=== PATIENT | female | born 1970 | race African-American/Black ===

== ENCOUNTER 2016-12-18 07:21 | Emergency (ER) | payer OTHER ==
[~2016-12-18] VITALS: Ht 160 cm; Wt 80.0 kg
[~2016-12-18 07:21] MED LIST: FLEXERIL10 MG PO; NAPROSYN500 MG PO; NORCO 7.5/321 TABLET PO; TYLENOL WITH C1 EACH PO
[2016-12-18 07:57] LABS: ADD MIUA? YES; BILIRUBIN NEGATIVE; BLOOD NEGATIVE; COLOR YELLOW ((YELLOW)); GLUCOSE (STRIP) NEGATIVE; KETONES NEGATIVE; LEUKOCYTES NEGATIVE; NITRITE NEGATIVE; PROTEIN (STRIP) NEGATIVE; SPECIFIC GRAVITY 1.026 (1.000-1.030); UROBILINOGEN 0.2 MG/DL (0.2-1.0)
[2016-12-18 08:11] LABS: BACTERIA NONE SEEN; CASTS NONE SEEN /LPF; CRYSTALS NONE SEEN; EPITHELIAL CELLS 2+; MUCUS NONE SEEN; PATHOLOGICAL CAST NONE SEEN; RED BLOOD CELLS 0-5 /HPF (0-5); SMALL ROUND CELL NONE SEEN; UCUL ADDED? NO; WHITE BLOOD CELLS 0-5 /HPF (0-5); YEAST-LIKE CELL NONE SEEN
[2016-12-18] MEDS ORDERED: VITAMIN A10000 UNIT PO (08:19)
[2016-12-18] MEDS ORDERED: VITAMIN E100 UNIT PO (08:19)
[2016-12-18 08:41] LABS: EOSINOPHIL (%) 1.4 % (0-5); EOSINOPHIL COUNT 0.1 K/uL (0-0.3); HEMATOCRIT 36.8 % (36.0-46.0); IMMATURE GRANULOCYTE (%) 0.1 % (0.0-0.7); IMMATURE GRANULOCYTE COUNT 0.1 K/uL; LYMPHOCYTE COUNT 3.5 K/uL (1.0-2.8); MCHC 33.7 G/DL (30.0-36.0); MCV 86.2 FL (83-99); MEAN PLAT.VOLUME 10.6 uM^3 (9.5-12.4); MONOCYTE (%) 8.9 % (3-12); MONOCYTE COUNT 0.7 K/uL (0-0.8); NEUTROPHIL (%) 40.9 % (45-76); PLATELET COUNT 292 K/uL (156-360); RBC DIS.WIDTH-SD 40.1 % (39-53); RED BLOOD COUNT 4.27 M/uL (3.80-5.20); WHITE BLOOD COUNT 7.3 K/uL (4.1-10.2)
[2016-12-18 08:52] LABS: CHLORIDE 107 mEq/L (99-109); POTASSIUM 3.6 mEq/L (3.7-5.4); SODIUM 140 mEq/L (136-147)
[2016-12-18 08:53] LABS: GLUCOSE 95 mg/dL (70-99)
[2016-12-18 08:55] LABS: ANION GAP 11 MEQ/L (2-14)
[2016-12-18 08:57] LABS: GFR ESTIMATE (CALCULATED) > 59 mL/min/
[2016-12-18 08:58] LABS: UREA NITROGEN (BUN) 9 mg/dL (9-23)
[2016-12-18] MEDS ORDERED: CIPRO500 MG PO (09:11)
[2016-12-18] MEDS ORDERED: FLAGYL500 MG PO (09:11)
[2016-12-18] MEDS ORDERED: TYLENOL WITH C1 EACH PO (09:11)
[2016-12-18 09:32] VITALS: BP 132/81
== END 2016-12-18 09:33 | disposition home or self-care (01) ==
LOC: EME 07:21
PROVIDERS: Emergency Medicine
DX: K57.32 Diverticulitis of large intestine without perforation or abscess without bleeding (principal); M79.602 Pain in left arm; Z87.891 Personal history of nicotine dependence
CPT/HCPCS: 74176; 80048; 81003; 85025; 99281; 99284; J1885; J7030

== ENCOUNTER 2017-01-22 15:00 | Emergency (ER) | payer OTHER ==
[~2017-01-22] VITALS: Ht 160 cm; Wt 79.0 kg
[~2017-01-22 15:00] MED LIST changes: +CIPRO500 MG PO; +FLAGYL500 MG PO; +VITAMIN A10000 UNIT PO; +VITAMIN E100 UNIT PO
[2017-01-22 16:38] LABS: ADD MIUA? YES; BILIRUBIN NEGATIVE; BLOOD NEGATIVE; COLOR YELLOW ((YELLOW)); GLUCOSE (STRIP) NEGATIVE; KETONES NEGATIVE; LEUKOCYTES TRACE; NITRITE NEGATIVE; PROTEIN (STRIP) NEGATIVE; SPECIFIC GRAVITY 1.019 (1.000-1.030); UROBILINOGEN 0.2 MG/DL (0.2-1.0)
[2017-01-22 16:47] LABS: BACTERIA RARE /HPF; EPITHELIAL CELLS RARE /HPF; MUCUS TRACE /LPF; RED BLOOD CELLS 0-5 /HPF (0-5); UCUL ADDED? NO; WHITE BLOOD CELLS 0-5 /HPF (0-5)
[2017-01-22 16:48] LABS: HEMATOCRIT 39.2 % (36.0-46.0); MCH 28.8 PG (29.0-34.0); MCHC 32.9 G/DL (30.0-36.0); MCV 87.5 FL (83-99); MEAN PLAT.VOLUME 10.8 uM^3 (9.5-12.4); PLATELET COUNT 280 K/uL (156-360); RBC DIS.WIDTH-CV 13.4 % (11.8-14.6); RBC DIS.WIDTH-SD 41.9 % (39-53); RED BLOOD COUNT 4.48 M/uL (3.80-5.20)
[2017-01-22 17:02] LABS: CHLORIDE 106 mEq/L (99-109); POTASSIUM 4.1 mEq/L (3.7-5.4); SODIUM 140 mEq/L (136-147)
[2017-01-22 17:04] LABS: GLUCOSE 93 mg/dL (70-99)
[2017-01-22 17:05] LABS: ANION GAP 10 MEQ/L (2-14)
[2017-01-22 17:06] LABS: TOTAL BILIRUBIN 0.2 mg/dL (0.0-1.0)
[2017-01-22 17:08] LABS: ALKALINE PHOSPHATASE 82 IU/L (3-129); GFR ESTIMATE (CALCULATED) > 59 mL/min/
[2017-01-22 17:09] LABS: UREA NITROGEN (BUN) 10 mg/dL (9-23)
[2017-01-22 17:11] LABS: LIPASE 26 U/L (1.0-51.0)
[2017-01-22] MEDS ORDERED: PERCOCET 5/31 TABLET PO (22:44)
[2017-01-22] MEDS ORDERED: ZOFRAN ODT4 MG PO (22:44)
[2017-01-22 23:02] VITALS: BP 128/91
== END 2017-01-22 23:03 | disposition home or self-care (01) ==
LOC: EME 15:00
DX: R10.32 Left lower quadrant pain (principal); K63.89 Other specified diseases of intestine; Q43.8 Other specified congenital malformations of intestine
CPT/HCPCS: 74177; 80053; 81003; 83690; 85027; 99281; 99285; J2270; J2405; J7030

== ENCOUNTER 2017-01-27 04:19 | Emergency (ER) | payer OTHER ==
[~2017-01-27] VITALS: Ht 160 cm; Wt 73.1 kg
[~2017-01-27 04:19] MED LIST changes: +PERCOCET 5/31 TABLET PO; +ZOFRAN ODT4 MG PO
[2017-01-27] MEDS ORDERED: AMOXICILLIN500 MG PO (06:14)
[2017-01-27] MEDS ORDERED: MOTRIN800 MG PO (06:14)
[2017-01-27 06:47] VITALS: BP 118/87
== END 2017-01-27 06:48 | disposition home or self-care (01) ==
LOC: EME 04:19
PROC: 0SSMXZZ Reposition Right Metatarsal-Phalangeal Joint, External Approach (ICD-10-PCS; principal; 2017-01-27)
DX: S02.2XXA Fracture of nasal bones, initial encounter for closed fracture (principal); S02.81XA Fracture of other specified skull and facial bones, right side, initial encounter for closed fracture; S93.124A Dislocation of metatarsophalangeal joint of right lesser toe(s), initial encounter; Y04.2XXA Assault by strike against or bumped into by another person, initial encounter; W10.8XXA Fall (on) (from) other stairs and steps, initial encounter; Y92.009 Unspecified place in unspecified non-institutional (private) residence as the place of occurrence of the external cause; F17.200 Nicotine dependence, unspecified, uncomplicated
CPT/HCPCS: 70450; 70486; 73630; 99281; 99284; S0020